=== PATIENT | male | born 1960 | race Two or more races ===

== ENCOUNTER 2016-05-27 19:54 | Emergency (ER) | payer OTHER ==
[2016-05-27] MEDS ORDERED: IOPAMIDOL 370 (76%) 100 ML VIAL IV ONE (19:55)
[2016-05-27 21:09] LABS: ABSOLUTE NEUTROPHIL COUNT 4.8 K/mm3 (1.8-7.7); BASO # 0.1 K/mm3 (0.0-0.2); BASO % 0.6 % (0.2-1.0); EOS # 0.4 (0.0-0.5); EOS % 3.7 % (0.9-2.9); HEMOGLOBIN 14.4 gm/l (14.0-18.0); IMM NEUT% 0.3 % (0-1); LYMPH # 4.2 (1.0-4.8); LYMPH % 40.9 % (15-45); MEAN CORPUSCULAR HEMOGLOBIN 28.8 pg (27.0-31.0); MEAN CORPUSCULAR HGB CONC 32.7 g/dl (33.0-37.0); MEAN PLATELET VOLUME 10.1 fl (7.4-10.4); MONO # 0.8 (0.0-0.8); MONO % 7.8 % (4-12); NEUT % 46.7 % (43-75); PLATELET COUNT 220 K/mm3 (130-400); RED CELL DISTRIBUTION WIDTH 12.9 % (11.5-14.5)
[2016-05-27 21:21] LABS: CALCIUM 9.2 mg/dL (8.6-10.3)
--- NOTE | 2016-05-28 05:57 | CT ---
EXAMINATION: CTA CAROTID W/ POST PROCESS: CLINICAL INDICATION: Left-sided numbness. Stroke symptoms. TECHNIQUE: Following uneventful administration of 80 cc of Isovue-370 intravenously, axial images were obtained from the posterior fossa to the superior mediastinum. Sagittal and coronal reconstructed images are acquired and reviewed. 3D postprocessing was performed at the [employer] workstation and reviewed in multiple planes. Stenosis measurements are based on NASCET criteria. FINDINGS: (NONANGIOGRAM FINDINGS): Lung apices are unremarkable. The thoracic inlet is within normal limits. The fat/soft tissue planes are preserved. Vocal cords are unremarkable. Tonsillar pillars are somewhat prominent with no calcifications or evidence of abscess. Fossa Rosenmuller are normal symmetric. The parotids are unremarkable. Spondylosis changes cervical spine are evident. The visualized segments the paranasal sinuses are clear. The orbits are unremarkable. The visualized segments of the posterior fossa are on remarkable as well. No abnormal enhancement is identified. CT ANGIOGRAM FINDINGS: Minimal after chronic plaquing in the aortic arch is noted. The innominate artery is unremarkable. The right common carotid artery exhibits very minimal intimal thickening with no evidence of stenosis. Carotid bifurcation exhibits minimal atherosclerotic plaquing with no evidence of stenosis. The internal carotid artery is unremarkable to the skull base. The left common carotid artery exhibits minimal intimal thickening. There is no evidence of origin stenosis. Pelvic carotid bifurcation exhibits no evidence of significant plaquing or stenosis. The left internal carotid artery is unremarkable to the skull base. The vertebral arteries exhibit no evidence of proximal stenosis. No occlusion or aneurysm is identified to the C1-2 articulation. The venous structures are unremarkable. The subclavian arteries are within normal limits. IMPRESSION: 1. No evidence of significant carotid stenosis or occlusion. No aneurysm is identified. 2. Antegrade flow some through the vertebrals bilaterally. 3. Spondylosis changes cervical spine. 4. Prominent tonsils without evidence of abscess. No carotid chain lymphadenopathy is identified. Findings were communicated by [facility] to the emergency department at: 2156 hours 05/27/2016
--- NOTE | 2016-05-28 06:00 | CT ---
EXAMINATION:CT SCAN HEAD W/O CONTRAST. CLINICAL INDICATION:Left-sided numbness. COMPARISON:None TECHNIQUE: A Cranial CT was performed using a [employer] multislice CT scanner. Axial images were acquired from just above the vertex through the skull base. 4 mm stacked axial, sagittal, and coronal reconstructed images were reviewed. FINDINGS: There is slight prominence of the CSF space throughout. Slight diminished attenuation is noted the paravertebral white matter tracts. No acute intracranial hemorrhage or extra-axial fluid collections are identified.:There is no mass effect or midline shift. The posterior fossa is unremarkable. The cerebellar pontine angle cisterns are normal and symmetric. The osseous structures are intact. The paranasal sinuses are unremarkable. The orbits and retrobulbar regions are unremarkable.:The mastoid sinuses are clear. The scalp and adjacent soft tissues are unremarkable. IMPRESSION: Mild diffuse involutional changes of microvascular ischemic changes. No acute intracranial abnormalities identified. Findings were communicated by [facility] to the emergency department at: 2156 hours 05/27/2016
--- NOTE | 2016-05-28 06:04 | CT ---
EXAMINATION: Cranial CT angiogram without and with contrast. 3-D post processing. CLINICAL INDICATION: Left-sided weakness. COMPARISON:None TECHNIQUE: Multi-slice [employer] CT scanner was used. Axial images were acquired from the skull base to the vertex in a standard fashion. Sagittal axial and coronal stacked reconstructed images were reviewed. Following uneventful intravenous administration of 80 milliliters of Isovue-370, axial images were acquired in a similar fashion. Stacked images were again reviewed. 3-D post processing was performed at the [employer] workstation. NASCET criteria was used for stenosis measurement. FINDINGS: The CSF-containing spaces are prominent throughout. There is mild diminished attenuation within the periventricular white matter tracts bilaterally. No intracranial hemorrhage or mass effect is identified. There is no extra-axial fluid collection. Posterior fossa and cerebellopontine angle cisterns are within normal limits. CT angiogram findings exhibit no evidence of aneurysm or occlusion. The vertebrobasilar system is unremarkable. The middle cerebral and anterior cerebral arteries are well opacified. Mild atherosclerotic plaquing involves the cavernosal segments of the internal carotids bilaterally. No significant stenosis is seen. Posterior communicating arteries are patent. No vascular malformations are detected. No enhancing mass lesion is seen. IMPRESSION: 1. No evidence of acute intracranial vascular occlusion or aneurysm. 2. Mild global diffuse atrophy with microvascular ischemic changes. Findings were communicated by [facility] to the emergency department at: 2156 hours 05/28/2016
== END 2016-05-27 22:24 | disposition home or self-care (01) ==
LOC: ED 19:54
DX: R20.9 Unspecified disturbances of skin sensation (principal); E11.9 Type 2 diabetes mellitus without complications; E78.00 Pure hypercholesterolemia, unspecified; I10 Essential (primary) hypertension; Z79.899 Other long term (current) drug therapy
CPT/HCPCS: 85025; 80048; 70450; 70496; 70498; 99283 ×2; Q9967